=== PATIENT | female | born 1995 | race African-American/Black ===

== ENCOUNTER 2020-06-13 23:52 | Emergency (ER) | payer OTHER ==
[2020-06-14] MEDS ORDERED: EPIPEN 2-P0.3 MG/0.3 SC (00:49)
== END 2020-06-14 00:57 | disposition home or self-care (01) ==
LOC: FER 23:52
DX: K13.0 Diseases of lips (principal); T78.1XXA Other adverse food reactions, not elsewhere classified, initial encounter
CPT/HCPCS: 99283; J7512

== ENCOUNTER 2020-08-31 06:36 | Emergency (ER) | payer OTHER ==
[~2020-08-31 06:36] MED LIST: EPIPEN 2-P0.3 MG/0.3 SC
[2020-08-31] MEDS ORDERED: CLEOCIN300 MG PO (07:51)
== END 2020-08-31 08:05 | disposition home or self-care (01) ==
LOC: FER 06:36
DX: L03.031 Cellulitis of right toe (principal)
CPT/HCPCS: 99283

== ENCOUNTER 2020-11-17 17:35 | Emergency (ER) | payer OTHER ==
[~2020-11-17 17:35] MED LIST changes: +CLEOCIN300 MG PO
[2020-11-17 19:48] LABS: BASOPHIL 0.2 % (0-2); EOSINOPHIL 0.7 % (0-5); HCT 39.7 % (37.0-47.0); HGB 12.2 g/dl (12.5-16.0); MCH 26.5 pg (25.0-31.0); MCHC 30.7 g/dL (32.0-36.0); MCV 86.3 fL (78.0-100.0); MONOCYTE 3.4 % (0-12); MPV 10.9 fL (6.0-9.5); NEUTROPHIL 64.5 % (41-80); NRBC 0; PLT 438 K/uL (150-400); RDW 13.3 % (11.5-14.0); WBC 10.4 K/uL (4.0-10.5)
[2020-11-17 19:48] LABS: BILIRUBIN 1+ mg/dL (NEGATIVE); BLOOD NEGATIVE Ery/uL (NEGATIVE); CLARITY CLEAR (CLEAR); COLOR YELLOW (YELLOW); GLUCOSE (U) NORMAL (NORMAL); LEUKOCYTES NEGATIVE Leu/uL (NEGATIVE); NITRITE NEGATIVE (NEGATIVE); PROTEIN NEGATIVE (NEGATIVE); SPECIFIC GRAVITY >=1.030 (1.001-1.030); UROBILINOGEN 0.2 mg/dL (0.2-1.0); pH 5.5 (5.0-9.0)
[2020-11-17 19:49] LABS: LYMPHOCYTE 30.7 % (15-48)
[2020-11-17 20:06] LABS: ALBUMIN 3.2 g/dL (3.4-5.0); BILIRUBIN - TOTAL 0.3 mg/dL (0.2-1.0); BUN/CREAT RATIO (CALC) 11.5 RATIO; CREATININE 0.61 mg/dL (0.51-0.95); GLOBULIN (CALCULATION) 5.2 g/dL; POTASSIUM 3.8 mmol/L (3.5-5.1); TOTAL PROTEIN 8.4 g/dL (6.4-8.2)
[2020-11-17] MEDS ORDERED: ZOFRAN4 M1 PO (22:03)
== END 2020-11-17 22:35 | disposition home or self-care (01) ==
LOC: FER 17:35
PROVIDERS: Nurse Practitioner Family
DX: R10.84 Generalized abdominal pain (principal); R11.2 Nausea with vomiting, unspecified; R19.7 Diarrhea, unspecified; L60.8 Other nail disorders; E11.9 Type 2 diabetes mellitus without complications; Z88.0 Allergy status to penicillin
CPT/HCPCS: 36415; 80053; 81003; 82150; 83690; 85025; J7030; Q9967